=== PATIENT | female | born 2000 | race Caucasian/White ===

== ENCOUNTER 2021-05-01 13:51 | Emergency (ER) | payer OTHER, SELFPAY ==
--- NOTE | ~2021-05-01 | CT_ITS ---
EXAMINATION: CT abdomen pelvis w con DATE: 05/01/2021 21:13 INDICATION: Abdominal pain and vomiting TECHNIQUE: Computed tomography (CT) of the abdomen and pelvis was performed with 100 mL Omnipaque-350 intravenous contrast. Automated exposure control and iterative reconstruction technique were employe d. The dose-length product was 1116.42 mGy-cm. COMPARISON: None FINDINGS: Lung bases are clear. Heart size is normal. No pericardial or pleural effusion. Liver, gallbladder, p ancreas, bilateral adrenal glands and kidneys are normal. Mild splenomegaly measuring 18.9 cm cranioc audal length. Fluid throughout the colon consistent with diarrhea. No bowel obstruction. Normal appen meryl. Bladder, anteverted uterus and bilateral ovaries are normal. No free intraperitoneal gas or flui d. No pathologically enlarged abdominal or pelvic lymphadenopathy. Bones are unremarkable. IMPRESSION: 1. Fluid throughout the colon consistent with diarrhea. Correlate for enteritis. Reviewed, dictated and finalized at [facility]. INE I COREMAKER IMPRESSION: 1. Fluid throughout the colon consistent with diarrhea. Correlate for enteritis .
[2021-05-01 14:05] VITALS: BP 131/81; PULSE 111; RESP 16; TEMP 36.3; O2SAT 98
[2021-05-01 17:24] LABS: Hemoglobin 13.4 g/dL (12.0-15.0); Mean Corpuscular HGB Conc 31.9 g/dl (32-36); Mean Corpuscular Hemoglobin 23.1 pg (26-34); Mean Corpuscular Volume 72.4 fl (80-100); Mean Platelet Volume 8.7 fl (7.4-10.4); Platelet Count Result 394 k/mm3 (150-375); Red Cell Distribution Width 15.1 % (11.5-14.5); White Blood Count 14.9 K/mm3 (4.5-10.0)
[2021-05-01 17:42] LABS: Alanine Aminotransferase 22 U/L (4-35); Albumin Level 4.8 g/dL (3.5-5.1); Alkaline Phosphatase 84 U/L (38-126); Anion Gap 15 mmol/L (8-16); Aspartate Amino Transferase 30 U/L (14-36); Bilirubin,Total 0.9 mg/dL (0.2-1.3); Blood Urea Nitrogen 17 mg/dL (7-17); Calcium 9.4 mg/dL (8.4-10.2); Carbon Dioxide 20 mmol/L (22-30); Chloride 103 mmol/L (98-107); Estimated CRCL calculation 92 ml/min; Estimated Glomerular Filt Rate > 60; Glucose 125 mg/dL (65-110); Potassium 4.6 mmol/L (3.4-5.0); Sodium 138 mmol/L (137-145)
[2021-05-01 18:01] LABS: Band Neutrophils Percent 5 % (0-6); Hypochromasia 1+ (NORMAL); Large Platelets Present; Lymphocytes Absolute Manual 0.29 K/mm3 (1.1-4.5); Monocytes Absolute Manual 0.14 K/mm3 (0.1-0.90); Monocytes Percent Manual 1 % (3-9); Neutrophils Absolute Manual 14.45 K/mm3 (1.7-7.2); Neutrophils Percent Manual 92 % (46-73); Platelet Estimate Adequate (Adequate); Total Cells Counted 100
--- NOTE | 2021-05-01 18:10 | ED.GENADULT ---
HPI - General Adult General Chief complaint: Nausea/Vomiting/Diarrhea Stated complaint: vomiting, syncope Time Seen by Provider: 05/01/21 16:51 Source: patient and RN notes reviewed History of Present Illness HPI narrative: Patient is a 21 y/o female complaining of nausea, vomiting and diarrhea starting earlier today. She states that she is vomiting up food and yellowish liquid. There is no known alleviating or exacerbating factor. She vomited 6-7 times. She has some mild abdominal pain. She also passed out briefly while she was on the commode earlier today. Related Data Allergies Allergy/AdvReac Type Severity Reaction Status Date / Time No Known Allergies Allergy Mild Verified 03/30/12 03:49 Review of Systems Constitutional: Constitutional: Denies chills, Denies fever(s), Denies headache(s) and Denies weakness Eyes: Eyes: Denies blurry vision ENT: Denies headache(s) and Denies neck pain Cardiovascular: Cardiovascular: Denies chest pain and Denies dyspnea Respiratory: Respiratory: Denies cough and Denies dyspnea Gastrointestinal: Gastrointestinal: Reports abdominal pain, Reports diarrhea, Reports nausea and Reports vomiting Genitourinary: Genitourinary: Denies hematuria and Denies dysuria Musculoskeletal: Musculoskeletal: Denies back pain and Denies neck pain Neurologic: Reports syncope, Denies headache(s) and Denies weakness Exam Const: General: no acute distress and well developed Orientation/consciousness: oriented to person, oriented to place, oriented to time and patient oriented x3 HENMT: Head: normocephalic Ears: external ears normal General nose exam: Normal external nose present Eyes: General: appearance normal, both eyes and all related structures Conjunctivae: conjunctivae normal Neck: Neck: normal visual inspection and full ROM Chest: Chest palpation & inspection: normal inspection of the chest and no tenderness Resp: Effort & Inspection: normal respiratory effort Auscultation: clear to auscultation bilaterally Cardio: Rate: tachycardic Rhythm: regular rhythm GI: GI Palp: No abdominal tenderness and Yes Soft to palpation Skin: General skin exam: normal color and turgor normal Neuro: General: oriented to person, oriented to place, oriented to time and patient oriented x3 Cognition (Neuro): normal cognition Extrem: General: normal to inspection, full ROM and no pedal edema Psych: Appearance: grossly normal Mental Status: mental status grossly normal Affect: normal affect Course Vital Signs Vital signs: Vital Signs Temperature 36.3 C L 05/01/21 14:05 Pulse Rate 111 H 05/01/21 14:05 Respiratory Rate 16 05/01/21 14:05 Blood Pressure 131/81 05/01/21 14:05 Pulse Oximetry 98 05/01/21 14:05 Temperature 36.3 C L 05/01/21 14:05 Pulse Rate 82 05/01/21 22:17 Respiratory Rate 16 05/01/21 22:17 Blood Pressure 131/86 05/01/21 22:17 Pulse Oximetry 97 05/01/21 22:17 Medical Decision Making Vital Signs Vital Signs: Vital Signs Temperature 36.3 C L 05/01/21 14:05 Pulse Rate 111 H 05/01/21 14:05 Respiratory Rate 16 05/01/21 14:05 Blood Pressure 131/81 05/01/21 14:05 Pulse Oximetry 98 05/01/21 14:05 Temperature 36.3 C L 05/01/21 14:05 Pulse Rate 82 05/01/21 22:17 Respiratory Rate 16 05/01/21 22:17 Blood Pressure 131/86 05/01/21 22:17 Pulse Oximetry 97 05/01/21 22:17 Lab Data Result diagrams: 05/01/21 17:15 05/01/21 17:15 Labs: Lab Results 05/01/21 05/01/21 05/01/21 Range/Units 17:15 17:15 17:52 WBC 14.9 H (4.5-10.0) K/mm3 RBC 5.80 H (4.2-5.4) M/mm3 Hgb 13.4 (12.0-15.0) g/dL Hct 42.0 (37.0-47.0) % MCV 72.4 L (80-100) fl MCH 23.1 L (26-34) pg MCHC 31.9 L (32-36) g/dl RDW 15.1 H (11.5-14.5) % Plt Count 394 H (150-375) k/mm3 MPV 8.7 (7.4-10.4) fl Immature Gran % (Auto) Not Reportable Neut % (Auto) Not Reportable Lymph % (A
[2021-05-01 18:11] LABS: Add Urine Microscopic? YES; Appearance Urine Cloudy (Clear); Bacteria Urine 3+ /hpf; Bilirubin Urine Negative (Negative); Blood Urine 1+ (Negative); Color Urine Amber (Yellow); Glucose Urine UA Negative (Negative); Ketones Urine Negative (Negative); Leukocyte Esterase Ur Negative LEU/UL (Negative); Mucus Urine Heavy /lpf; Nitrate Urine Negative (Negative); Protein Urine 2+ mg/dL (Negative); Specific Grav Ur 1.029 (1.001-1.035); Squamous Epithelial Cell Urine Moderate /hpf (Few); Urobilinogen Urine Negative mg/dL (<2.0)
[2021-05-01 18:15] VITALS: BP 100/57; PULSE 82; RESP 18; O2SAT 97
[2021-05-01] MEDS: METOCLOPRAMIDE HCL INJ 10 MG/2 ML VIAL IV PUSH (18:15)
[2021-05-01] MEDS: SODIUM CHLORIDE 0.9% IV 1,000 ML 999 ML IV CONT (18:15)
--- NOTE | 2021-05-01 18:44 | ECG_ITS ---
Measurements Intervals Telferner Rate: 128 P: 43 CO: 148 QRS: 32 QRSD: 72 T: 14 QT: 334 QTc: 488 Interpretive Statements SINUS TACHYCARDIA NONSPECIFIC T-WAVE ABNORMALITY- ANT/INF LEADS BASELINE ARTIFACT- I, III, AVL ABNORMAL ECG Electronically Signed On 05-02-2021 14:07:38 SLIMER by Supa Lucio D.O.
[2021-05-01 20:12] VITALS: BP 93/75; PULSE 84; RESP 20; O2SAT 99
[2021-05-01 20:13] VITALS: BP 137/76; PULSE 117; O2SAT 98
[2021-05-01 22:17] VITALS: BP 131/86; PULSE 82; RESP 16; O2SAT 97
== END 2021-05-01 22:18 | disposition home or self-care (01) ==
PROVIDERS: Emergency Provider Emergency Medicine
DX: K52.9 Noninfective gastroenteritis and colitis, unspecified (principal); R55 Syncope and collapse; E86.0 Dehydration
CPT/HCPCS: 36415; 74177; 80053; 81001; 81025; 85025; 87086; 87088; 93005; 96361; 96374; 99284; J2765; J7030; Q9967